=== PATIENT | male | born 1945 | race Caucasian/White ===

== ENCOUNTER 2017-04-29 01:58 | Inpatient (IN) | payer OTHER ==
[2017-04-29] VITALS (12 sets, daily range): BP systolic 105–120; BP diastolic 62–81; PULSE 61–82; RESP 18–20; TEMP 97–98.7; O2SAT 93–99
[~2017-04-29] VITALS: Ht 177.8 cm; Wt 78.8 kg
[2017-04-29] MEDS ORDERED: IBUP1TAB5 PO (02:28)
[2017-04-29 02:36] LABS: AUTOMATED NEUTROPHIL # 9.9 TH/MM3 (1.8-7.7); BASOPHIL # 0.2 TH/MM3 (0-0.2); BASOPHIL % 2.2 % (0.0-2.0); EOSINOPHIL % 0.1 % (0.0-4.0); HEMATOCRIT 44.9 % (39.0-51.0); HEMOGLOBIN 14.9 GM/DL (13.0-17.0); LYMPH % 6.8 % (9.0-44.0); LYMPHOCYTE # 0.8 TH/MM3 (1.0-4.8); MEAN CELL VOLUME 98.2 FL (80.0-100.0); MEAN CORPUSCULAR HEMOGLOBIN 32.7 PG (27.0-34.0); MEAN CORPUSCULAR HGB CONC 33.3 % (32.0-36.0); MEAN PLATELET VOLUME 10.6 FL (7.0-11.0); MONOCYTE # 0.3 TH/MM3 (0-0.9); NEUT % 87.9 % (16.0-70.0); PLATELET COUNT 132 TH/MM3 (150-450); RED BLOOD COUNT 4.58 MIL/MM3 (4.50-5.90); RED CELL DISTRIBUTION WIDTH 11.9 % (11.6-17.2); WHITE BLOOD COUNT 11.2 TH/MM3 (4.0-11.0)
[2017-04-29 02:44] LABS: CHLORIDE 100 MEQ/L (98-107); SODIUM (NA) 135 MEQ/L (136-145)
[2017-04-29 02:48] LABS: ALBUMIN 4.1 GM/DL (3.4-5.0); BICARBONATE 27.3 MEQ/L (21.0-32.0); BLOOD UREA NITROGEN 25 MG/DL (7-18); GLUCOSE,RANDOM 132 MG/DL (74-106)
[2017-04-29 02:50] LABS: ALT (GPT) 24 U/L (12-78)
[2017-04-29 02:51] LABS: AST (GOT) 31 U/L (15-37); GLOMERULAR FILTRATION RATE 59 ML/MIN (>89)
[2017-04-29 02:52] LABS: TOTAL BILIRUBIN ADULT 0.8 MG/DL (0.2-1.0); TOTAL PROTEIN 7.5 GM/DL (6.4-8.2)
[2017-04-29 02:53] LABS: ALKALINE PHOSPHATASE 75 U/L (45-117)
[2017-04-29] MEDS ORDERED: SODIUM CHLOR 0.9% 1000 ML INJ 1,000 ML IV SCH (03:53)
--- NOTE | 2017-04-29 03:59 | PD ---
HPI Chief Complaint: Abdominal Pain Time Seen by Provider: 03:53 Travel History International Travel<30 days: No Contact w/Intl Traveler<30days: No Traveled to known affect area: No History of Present Illness HPI The patient is a 71-year-old male that complains of abdominal pain/vomiting since 1 PM tonight. The abdominal pain is periumbilical and involves all 4 quadrants diffusely. He has never had surgery and still has his appendix and gallbladder. The pain is 8/10, constant and sharp. The patient states he used to be a heavy drinker and had a problem with pancreatitis. He states he has never had this type of problem before. He no longer is a heavy drinker. PFS Past Medical History Diminished Hearing: No Inguinal Hernia: Yes Tetanus Vaccination: Unknown Influenza Vaccination: Yes Past Surgical History Other Surgery: Yes (left inguinal hernia repair ) Social History Alcohol Use: Yes (2 beers daily) Tobacco Use: No Substance Use: No Allergies-Medications (Allergen,Severity, Reaction): Coded Allergies: No Known Allergies (Unverified , 04/29/17) Reported Meds & Prescriptions Reported Meds & Active Scripts Active Reported Ibuprofen 400 Mg Tab 400 Mg PO DAILY PRN Review of Systems Except as stated in HPI: all other systems reviewed are Neg Physical Exam Narrative GENERAL: The patient is alert, oriented 3 in moderate apparent distress with his abdominal discomfort. His vital signs are normal. SKIN: Focused skin assessment warm/dry. HEAD: Atraumatic. Normocephalic. EYES: Pupils equal and round. No scleral icterus. No injection or drainage. ENT: No nasal bleeding or discharge. Mucous membranes pink and moist. NECK: Trachea midline. No JVD. CARDIOVASCULAR: Regular rate and rhythm. No murmur appreciated. RESPIRATORY: No accessory muscle use. Clear to auscultation. Breath sounds equal bilaterally. GASTROINTESTINAL: Abdomen soft, with diffuse tenderness in the periumbilical area and bilateral lower quadrants, nondistended. Hepatic and splenic margins not palpable. No guarding or rebound is present. MUSCULOSKELETAL: No obvious deformities. No clubbing. No cyanosis. No edema. NEUROLOGICAL: Awake and alert. No obvious cranial nerve deficits. Motor grossly within normal limits. Normal speech. PSYCHIATRIC: Appropriate mood and affect; insight and judgment normal. Data Data Last Documented VS Vital Signs Date Time Temp Pulse Resp B/P (MAP) Pulse Ox O2 Delivery O2 Flow Rate FiO2 2/2/18 04:50 16 04/29/17 04:31 71 114/75 (88) 97 04/29/17 02:05 97.0 Orders Orders Complete Blood Count With Diff (04/29/17 02:22) Comprehensive Metabolic Panel (04/29/17 02:22) Urinalysis - C+S If Indicated (04/29/17 02:22) Lipase (04/29/17 02:22) Ct Abd/Pel W Iv Contrast(Rout) (04/29/17 03:53) Hydromorphone Pf Inj (Dilaudid Pf Inj) (04/29/17 04:00) Ondansetron Inj (Zofran Inj) (04/29/17 04:00) Sodium Chlor 0.9% 1000 Ml Inj (Ns 1000 M (04/29/17 03:53) Iohexol 350 Inj (Omnipaque 350 Inj) (04/29/17 04:00) Place In Observation (04/29/17 ) Vital Signs (Adult) Q4H (04/29/17 05:15) Activity Oob With Assistance (04/29/17 05:15) Diet Npo (04/29/17 Breakfast) Sodium Chlor 0.9% 1000 Ml Inj (Ns 1000 M (04/29/17 05:15) Sodium Chloride 0.9% Flush (Ns Flush) (04/29/17 05:15) Sodium Chloride 0.9% Flush (Ns Flush) (04/29/17 09:00) Ondansetron Inj (Zofran Inj) (04/29/17 05:15) Comprehensive Metabolic Panel (04/30/17 06:00) Complete Blood Count With Diff (04/30/17 06:00) Naloxone Inj (Narcan Inj) (04/29/17 05:15) Docusate Sodium-Senna (Janet-Colace) (04/29/17 09:00) Magnesium Hydroxide Liq (Milk Of Magnesi (04/29/17 05:15) Sennosides (Senokot) (04/29/17 05:15) Bisacodyl Supp (Dulcolax Supp) (04/29/17 05:15) Lactulose Liq (Lactulose Liq) (04/29/17 05:15) Consult General Surgery (04/29/17 ) Hydromorphone Pf Inj (Dilaudid Pf Inj) (04/29/17 05:15) (Hub Use Only)Inp Phy Cons/Ref (04/29/17 ) Admit Order (Ed Use Only) (04/29/17 05:41) Labs Laboratory Tests Test 04/29/17 02:30 04/29/17 04:20 White Blood Count 11.2 TH/MM3 Red Blood Count 4.58 MIL/MM3 Hemoglobin 14.9 GM/DL Hematocrit 44.9 % Mean Corpuscular Volume 98.2 FL Mean Corpuscular Hemoglobin 32.7 PG Mean Corpuscular Hemoglobin Concent 33.3 % Red Cell Distribution Width 11.9 % Platelet Count 132 TH/MM3 Mean Platelet Volume 10.6 FL Neutrophils (%) (Auto) 87.9 % Lymphocytes (%) (Auto) 6.8 % Monocytes (%) (Auto) 3.0 % Eosinophils (%) (Auto) 0.1 % Basophils (%) (Auto) 2.2 % Neutrophils # (Auto) 9.9 TH/MM3 Lymphocytes # (Auto) 0.8 TH/MM3 Monocytes # (Auto) 0.3 TH/MM3 Eosinophils # (Auto) 0.0 TH/MM3 Basophils # (Auto) 0.2 TH/MM3 CBC Comment DIFF FINAL Differential Comment Blood Urea Nitrogen 25 MG/DL Creatinine 1.20 MG/DL Random Glucose 132 MG/DL Total Protein 7.5 GM/DL Albumin 4.1 GM/DL Calcium Level 10.0 MG/DL Alkaline Phosphatase 75 U/L Aspartate Amino Transf (AST/SGOT) 31 U/L Alanine Aminotransferase (ALT/SGPT) 24 U/L Total Bilirubin 0.8 MG/DL Sodium Level 135 MEQ/L Potassium Level 4.5 MEQ/L Chloride Level 100 MEQ/L Carbon Dioxide Level 27.3 MEQ/L Anion Gap 8 MEQ/L Estimat Glomerular Filtration Rate 59 ML/MIN Lipase 171 U/L Urine Color YELLOW Urine Turbidity CLEAR Urine pH 6.5 Urine Specific [place] 1.025 Urine Protein TRACE mg/dL Urine Glucose (UA) NEG mg/dL Urine Ketones 15 mg/dL Urine Occult Blood SMALL Urine Nitrite NEG Urine Bilirubin NEG Urine Leukocyte Esterase NEG Urine RBC 0-3 /hpf Urine WBC 0-2 /hpf Urine Squamous Epithelial Cells 0-5 /hpf Urine Bacteria NONE /hpf Microscopic Urinalysis Comment CULT NOT INDICATED MDM Medical Decision Making Medical Screen Exam Complete: Yes Emergency Medical Condition: Yes Medical Record Reviewed: Yes Interpretation(s) The CBC shows a white count 11,200 with 88% neutrophils but is otherwise unremarkable. The complete metabolic profile shows a sodium of 135, GFR of 59 BUN 25, glucose 132 but is otherwise normal. The lipase is normal. The CT abdomen pelvis shows a small obstruction with transition point in the right lower quadrant. Incidentally noted are hepatic cyst and renal cysts and nonobstructing left lower pole renal calculus. The urine shows 15 ketones, small occult blood but is otherwise normal and culture is not indicated. Differential Diagnosis Small bowel obstruction, appendicitis, colitis, urinary tract infection, dehydration, electrolyte disorder, pancreatitis Narrative Course The patient has a small bowel obstruction. The patient has no previous surgeries on the abdomen and this is somewhat unusual that he has a small bowel obstruction without any apparent intra-abdominal scarring. The patient will be admitted to the [facility] service for fluids, nothing by mouth. If this does not cause resolution of the obstruction then surgery needs to be consulted. Patient has not vomited in emergency department and is fairly comfortable. The NG tube will be deferred at this time. The patient also has mild dehydration. Diagnosis Primary Impression: Small bowel obstruction Additional Impression: Mild dehydration Admitting Information Admitting Physician Requests: Minh Medina MD Apr 29, 2017 03:59
[2017-04-29] MEDS ORDERED: ONDANSETRON HCL 4 MG/2 ML VIAL IVP ONE (04:00)
[2017-04-29] MEDS ORDERED: HYDROmorphone HCL PF 2 MG/ML VIAL IVS ONE (04:00)
[2017-04-29] MEDS ORDERED: IOHEXOL 350 MG/ML 10 ML VIAL (for RAD DIAG) IVCONTRAST ONE (04:00)
[2017-04-29 04:31] LABS: BILIRUBIN, URINE NEG (NEG); BLOOD, URINE SMALL (NEG); GLUCOSE,URINE NEG (NEG); KETONE, URINE 15 mg/dL (NEG); NITRITE,URINE NEG (NEG); PH, URINE 6.5 (5.0-8.5); URINE LEUKOCYTE ESTERASE NEG (NEG)
--- NOTE | 2017-04-29 04:36 | RADRPT ---
EXAM DATE/TIME: 04/29/2017 04:08 [facility] COMPARISON: No previous studies available for comparison. INDICATIONS : Generalized abdominal pain and vomiting for 12 hours IV CONTRAST: 96 cc Omnipaque 350 (iohexol) IV ORAL CONTRAST: No oral contrast ingested. RADIATION DOSE: 8.49 CTDIvol (mGy) MEDICAL HISTORY : None SURGICAL HISTORY : Inguinal hernia repair. ENCOUNTER: Initial ACUITY: 1 day PAIN SCALE: 8/10 LOCATION: [facility]inal TECHNIQUE: Volumetric scanning of the abdomen and pelvis was performed. Using automated exposure control and ad justment of the mA and/or kV according to patient size, radiation dose was kept as low as reasonably achievable to obtain optimal diagnostic quality images. DICOM format image data is available electro nically for review and comparison. FINDINGS: Lung bases are clear. There are degenerative changes of the spine noted. There is a small pericardial effusion or numerous cysts are present throughout the hepatic parenchyma the largest in the left lob e measuring up to 2.3 cm. Spleen, pancreas, adrenals are unremarkable. There is a nonobstructing left lower pole 4.4 mm calculus, and a 5 mm cyst at the lower pole of left kidney. At the midpole of the right kidney a 2.6 cm cyst is noted, and at the upper pole of the right kidney an exophytic 5.8 cm si mple cyst is present. Urinary bladder and prostate are unremarkable. There is trace free fluid in the pelvis. Appendix normal. There are dilated fluid-filled loops of small bowel present in the stomach is distended with fluid. This is characteristic of a small bowel obstruction. Distal ileal loops are markedly decompressed. There is trace mesenteric fluid/edema in the right lower quadrant. A transitio n point is suspected on axial image 41 in the right lower quadrant. Small fat-containing umbilical he rnia. CONCLUSION: 1. Small bowel obstruction with transition point in the right lower quadrant. 2. Hepatic cysts and re nal cysts are noted. 3. Nonobstructing left lower pole renal calculus. Demarco Bee MD on April 29, 2017 at 4:30 Board Certified Radiologist. This report was verified electronically.
[2017-04-29 04:38] LABS: RBC, URINE 0-3 /hpf (0-3); SQUAMOUS EPITHELIAL CELL URINE 0-5 /hpf (0-5); URINE COLOR YELLOW (YELLW/STRAW); WBC, URINE 0-2 /hpf (0-5)
[2017-04-29] MEDS ORDERED: MAGNESIUM HYDROXIDE SUSP 30 ML CUP PO PRN (05:15)
[2017-04-29] MEDS ORDERED: HYDROmorphone HCL PF 2 MG/ML VIAL IV PUSH PRN (05:15)
[2017-04-29] MEDS ORDERED: ONDANSETRON HCL 4 MG/2 ML VIAL IVP PRN (05:15)
[2017-04-29] MEDS ORDERED: LACTULOSE SYRUP 20 GM/30 ML CUP PO PRN (05:15)
[2017-04-29] MEDS ORDERED: SENNOSIDES 8.6 MG TAB PO PRN (05:15)
[2017-04-29] MEDS ORDERED: NALOXONE HCL 0.4 MG/ML AMP IV PUSH PRN (05:15)
[2017-04-29] MEDS ORDERED: BISACODYL 10 MG SUPP RECTAL PRN (05:15)
[2017-04-29] MEDS ORDERED: SODIUM CHLORIDE 0.9% FLUSH 10 ML FLUSH IV FLUSH PRN (05:15)
[2017-04-29] MEDS: SODIUM CHLOR 0.9% 1000 ML INJ 1,000 ML IV SCH ×2 (06:40→16:44)
[2017-04-29] MEDS ORDERED: DOCUSATE SODIUM 50 MG/SENNA 8.6 MG TAB PO SCH (09:00)
[2017-04-29] MEDS: SODIUM CHLORIDE 0.9% FLUSH 10 ML FLUSH IV FLUSH SCH ×2 (09:00→21:27)
--- NOTE | 2017-04-29 13:21 | HHI.HP ---
[facility] Service [facility] Primary Care Physician [facility] Admission Diagnosis small bowel obstruction, dehydration Diagnoses: Travel History International Travel<30 Days: No Contact w/Intl Traveler <30 Da: No Traveled to Known Affected Are: No History of Present Illness This patient is a 71-year-old gentleman with minimal past medical history comes in with acute onset of abdominal pain with associated vomiting. The pain is described as 8 out of 10, constant and sharp and worse in the left side. It is improved with IV Dilaudid. The pain goes from 8-6. He used to be a heavy drinker but now drinks only 2 beers a day. He is active and exercises daily. In the past he has had problems with pancreatitis and was prescribed pancreas enzymes however had stopped taking them. He now takes ibuprofen as needed for pain. Patient has not had a fever or chills. He is mildly elevated white cell count and some mild hyponatremia. The patient's recommend for admission due to obstruction which is seen clinically and on CT of abdomen pelvis Review of Systems Constitutional: DENIES: Diaphoretic episodes, Fatigue, Fever, Weight gain, Weight loss, Chills, Dizziness, Change in appetite, Night Sweats Endocrine: DENIES: Heat/cold intolerance, Polydipsia, Polyuria, Polyphagia Eyes: DENIES: Blurred vision, Diplopia, Eye inflammation, Eye pain, Vision loss , Photosensitivity, Double Vision Ears, nose, mouth, throat: DENIES: Tinnitus, Hearing loss, Vertigo, Nasal discharge, Oral lesions, Throat pain, Hoarseness, Ear Pain, Running Nose, Epistaxis, Sinus Pain, Toothache, Odynophagia Respiratory: DENIES: Apneas, Cough, Snoring, Wheezing, Hemoptysis, Sputum production, Shortness of breath Cardiovascular: DENIES: Chest pain, Palpitations, Syncope, Dyspnea on Exertion , PND, Lower Extremity Edema, Orthopnea, Claudication Gastrointestinal: COMPLAINS OF: Abdominal pain, Nausea Genitourinary: DENIES: Sexual dysfunction, Urinary frequency, Urinary incontinence, Urgency, Hematuria, Dysuria, Nocturia, Penile Discharge, Testicular Pain, Testicular Swelling Integumentary: DENIES: Abnormal pigmentation, Nail changes, Pruritus, Rash Hematologic/lymphatic: DENIES: Bruising, Lymphadenopathy Immunologic/allergic: DENIES: Eczema, Urticaria Neurologic: DENIES: Abnormal gait, Headache, Localized weakness, Paresthesias, Seizures, Speech Problems, Tremor, Poor Balance Psychiatric: DENIES: Anxiety, Confusion, Mood changes, Depression, Hallucinations, Agitation, Suicidal Ideation, Homicidal Ideation, Delusions Except as stated in HPI: all other systems reviewed are Neg Past Family Social History Past Medical History History of pancreatic insufficiency Past Surgical History Left inguinal hernia repair Reported Medications Reviewed in the EMR Allergies: Coded Allergies: No Known Allergies (Unverified , 04/29/17) Active Ordered Medications Reviewed in the EMR Family History Mother from cancer at 65 father from old age and a 4 Social History No current tobacco, alcohol daily but previous history of excessive alcohol dependency and pancreatic insufficiency Physical Exam Vital Signs Vital Signs Date Time Temp Pulse Resp B/P (MAP) Pulse Ox O2 Delivery O2 Flow Rate FiO2 04/29/17 08:26 95 21 04/29/17 08:12 96 Nasal Cannula 2.00 04/29/17 08:00 97.9 61 18 116/72 (87) 95 04/29/17 06:24 97.0 70 20 114/81 (92) 94 04/29/17 05:54 68 20 105/69 (81) 98 04/29/17 04:50 16 04/29/17 04:31 71 20 114/75 (88) 97 04/29/17 04:23 64 18 114/75 (88) 97 Room Air 04/29/17 03:09 71 18 120/71 (87) 97 04/29/17 02:30 20 04/29/17 02:05 97.0 66 20 105/62 (76) 99 Physical Exam GENERAL: This is a well-nourished, well-developed patient, complaining of abdominal pain SKIN: No rashes, ecchymoses or lesions. Cool and dry. HEAD: Atraumatic. Normocephalic. No temporal or scalp tenderness. EYES: Pupils equal round and reactive. Extraocular motions intact. No scleral icterus. No injection or drainage. ENT: Nose without bleeding, purulent drainage or septal hematoma. Throat without erythema, tonsillar hypertrophy or exudate. Uvula midline. Airway patent. NECK: Trachea midline. No JVD or lymphadenopathy. Supple, nontender, no meningeal signs. CARDIOVASCULAR: Regular rate and rhythm without murmurs, gallops, or rubs. RESPIRATORY: Clear to auscultation. Breath sounds equal bilaterally. No wheezes , rales, or rhonchi. GASTROINTESTINAL: Abdomen is soft, mildly distended, tender diffusely with hypoactive bowel sounds MUSCULOSKELETAL: Extremities without clubbing, cyanosis, or edema. No joint tenderness, effusion, or edema noted. No calf tenderness. Negative Homans sign bilaterally. NEUROLOGICAL: Awake and alert. Cranial nerves II through XII intact. Motor and sensory grossly within normal limits. Five out of 5 muscle strength in all muscle groups. Normal speech. Laboratory Laboratory Tests Test 04/29/17 02:30 04/29/17 04:20 White Blood Count 11.2 Red Blood Count 4.58 Hemoglobin 14.9 Hematocrit 44.9 Mean Corpuscular Volume 98.2 Mean Corpuscular Hemoglobin 32.7 Mean Corpuscular Hemoglobin Concent 33.3 Red Cell Distribution Width 11.9 Platelet Count 132 Mean Platelet Volume 10.6 Neutrophils (%) (Auto) 87.9 Lymphocytes (%) (Auto) 6.8 Monocytes (%) (Auto) 3.0 Eosinophils (%) (Auto) 0.1 Basophils (%) (Auto) 2.2 Neutrophils # (Auto) 9.9 Lymphocytes # (Auto) 0.8 Monocytes # (Auto) 0.3 Eosinophils # (Auto) 0.0 Basophils # (Auto) 0.2 CBC Comment DIFF FINAL Differential Comment Blood Urea Nitrogen 25 Creatinine 1.20 Random Glucose 132 Total Protein 7.5 Albumin 4.1 Calcium Level 10.0 Alkaline Phosphatase 75 Aspartate Amino Transf (AST/SGOT) 31 Alanine Aminotransferase (ALT/SGPT) 24 Total Bilirubin 0.8 Sodium Level 135 Potassium Level 4.5 Chloride Level 100 Carbon Dioxide Level 27.3 Anion Gap 8 Estimat Glomerular Filtration Rate 59 Lipase 171 Urine Color YELLOW Urine Turbidity CLEAR Urine pH 6.5 Urine Specific [place] 1.025 Urine Protein TRACE Urine Glucose (UA) NEG Urine Ketones 15 Urine Occult Blood SMALL Urine Nitrite NEG Urine Bilirubin NEG Urine Leukocyte Esterase NEG Urine RBC 0-3 Urine WBC 0-2 Urine Squamous Epithelial Cells 0-5 Urine Bacteria NONE Microscopic Urinalysis Comment CULT NOT INDICATED Result Diagram: 04/29/17 0230 04/29/17 0230 Imaging Last Impressions Abdomen/Pelvis CT 04/29/17 0353 Signed Impressions: Service Date/Time: Saturday, April 29, 2017 04:08 - CONCLUSION: 1. Small bowel obstruction with transition point in the right lower quadrant. 2. Hepatic cysts and renal cysts are noted. 3. Nonobstructing left lower pole renal calculus. MD Sae Alvarado VTE Risk Assessment Caprini VTE Risk Assessment: Mod/High Risk (score >= 2) Caprini Risk Assessment Model Point Value = 1 Point Value = 2 Point Value = 3 Point Value = 5 Age 41-60 Minor surgery BMI > 25 kg/m2 Swollen legs Varicose veins or History of unexplained or recurrent spontaneous Oral contraceptives or hormone replacement Sepsis (< 1 month) Serious lung disease, including pneumonia (< 1 month) Abnormal pulmonary function Acute myocardial infarction Congestive heart failure (< 1 month) History of inflammatory bowel disease Medical patient at bed rest Age 61-74 Arthroscopic surgery Major open surgery (> 45 min) Laparoscopic surgery (> 45 min) Malignancy Confined to bed (> 72 hours) Immobilizing plaster cast Central venous access Age >= 75 History of VTE Family history of VTE Factor V Leiden Prothrombin [id number] Lupus anticoagulant Anticardiolipin antibodies Elevated serum homocysteine Heparin-induced thrombocytopenia Other congenital or acquired thrombophilia Stroke (< 1 month) Elective arthroplasty Hip, pelvis, or leg fracture Acute spinal cord injury (< 1 month) Prophylaxis Regimen Total Risk Factor Score Risk Level Prophylaxis Regimen 0-1 Low Early ambulation 2 Moderate Order ONE of the following: *Sequential Compression Device (SCD) *Heparin 5000 units SQ BID 3-4 Higher Order ONE of the following medications: *Heparin 5000 units SQ TID *Enoxaparin/Lovenox 40 mg SQ daily (WT < 150 kg, CrCl > 30 mL/min) *Enoxaparin/Lovenox 30 mg SQ daily (WT < 150 kg, CrCl > 10-29 mL/min) *Enoxaparin/Lovenox 30 mg SQ BID (WT < 150 kg, CrCl > 30 mL/min) AND/OR *Sequential Compression Device (SCD) 5 or more Highest Order ONE of the following medications: *Heparin 5000 units SQ TID (Preferred with Epidurals) *Enoxaparin/Lovenox 40 mg SQ daily (WT < 150 kg, CrCl > 30 mL/min) *Enoxaparin/Lovenox 30 mg SQ daily (WT < 150 kg, CrCl > 10-29 mL/min) *Enoxaparin/Lovenox 30 mg SQ BID (WT < 150 kg, CrCl > 30 mL/min) AND *Sequential Compression Device (SCD) Assessment and Plan Problem List: (1) Small bowel obstruction ICD Code: K56.609 - Unspecified intestinal obstruction, unspecified as to partial versus complete obstruction Status: Acute Plan: we will continue with IV hydration, nothing by mouth status, encourage ambulation and continue with IV dilaudid for pain follow up flat and upright abdomen encourage ambulation Physician Certification 2 Midnight Certification Type: Admission for Inpatient Services Order for Inpatient Services The services are ordered in accordance with Medicare regulations or non- Medicare payer requirements, as applicable. In the case of services not specified as inpatient-only, they are appropriately provided as inpatient services in accordance with the 2-midnight benchmark. Estimated LOS (days): 3 3 days is the estimated time the patient will need to remain in the hospital, assuming treatment plan goals are met and no additional complications. Post-Hospital Plan: Home Ivet Ornelas MD Apr 29, 2017 13:21
[2017-04-30] VITALS: BP 113/65; PULSE 71; RESP 20; TEMP 97.4; O2SAT 95
[2017-04-30] MEDS: SODIUM CHLOR 0.9% 1000 ML INJ 1,000 ML IV SCH ×2 (01:45→11:15)
[2017-04-30 07:34] LABS: AUTOMATED NEUTROPHIL # 4.4 TH/MM3 (1.8-7.7); BASOPHIL % 0.4 % (0.0-2.0); EOSINOPHIL # 0.2 TH/MM3 (0-0.4); HEMATOCRIT 35.2 % (39.0-51.0); LYMPH % 19.3 % (9.0-44.0); LYMPHOCYTE # 1.2 TH/MM3 (1.0-4.8); MEAN CELL VOLUME 98.8 FL (80.0-100.0); MEAN CORPUSCULAR HEMOGLOBIN 35.1 PG (27.0-34.0); MEAN CORPUSCULAR HGB CONC 35.5 % (32.0-36.0); MEAN PLATELET VOLUME 11.4 FL (7.0-11.0); MONO % 7.7 % (0.0-8.0); MONOCYTE # 0.5 TH/MM3 (0-0.9); NEUT % 69.6 % (16.0-70.0); PLATELET COUNT 91 TH/MM3 (150-450); RED BLOOD COUNT 3.56 MIL/MM3 (4.50-5.90); RED CELL DISTRIBUTION WIDTH 12.4 % (11.6-17.2); WHITE BLOOD COUNT 6.3 TH/MM3 (4.0-11.0)
[2017-04-30 08:00] VITALS: BP 110/69; PULSE 52; RESP 15; TEMP 97.8; O2SAT 95
[2017-04-30 08:00] LABS: HEMOGLOBIN 12.5 GM/DL (13.0-17.0)
--- NOTE | 2017-04-30 08:07 | MB ---
cc: ELISE SYLVESTER M.D. DATE OF CONSULTATION: 04/29/2017 REASON FOR CONSULTATION: Small bowel obstruction seen on CT scan. HISTORY This a 71-year-old gentleman who does not really have any previous medical history. He states the last two weeks he was not feeling well, he had some loose bowel movements and then he had some severe cramping in his abdomen. Were had to call [employer] to get him to the emergency room. He had a CT scan which showed a small bowel obstruction and he was admitted and surgery was consulted to evaluate for small-bowel obstruction. He says he has not had a bowel movement in a couple days and not passing gas. He says since being in the hospital his pain is much better. He is not having cramping pain that he was having when he came by [employer]. REVIEW OF SYSTEMS Review of systems he denies any respiratory, cardiac her previous GI problems. No problems or skin problems, No psychiatric derangements. PAST SURGICAL HISTORY He has had a left inguinal hernia repair. He has had routine colonoscopies without pathology. PE IN GENERAL: On physical exam he is alert, oriented, pleasant, talkative gentleman. NECK: Neck is supple. CHEST: Clear. No carotid bruits. HEART: The heart is regular rate. HEAD, EYES, EARS, NOSE, AND THROAT: Pupils equal round reactive. ABDOMEN: Soft. Mild distension and no rebound or guarding. He has bowel sounds throughout. EXTREMITIES: Strength is all extremities without clubbing, cyanosis or edema. NEUROLOGIC: He is alert and without focal deficits. SKIN: Exam shows some tattoos. LABORATORY DATA He is a white count of 11, H&H of 14, 44 and platelet count 132. Chemistry showed a little bit of dehydration with a BUN of 25, creatinine 1.2. Liver enzymes were all normal. His lipase 171. Urinalysis is essentially clear. IMAGING STUDIES CT scan done with No oral contrast, just IV shows what was thought to be maybe a small bowel obstruction. ASSESSMENT/PLAN 71-year-old gentleman who is fairly healthy. No surgical history of his abdomen, only the left inguinal hernia repair. At this time clinically he does not have a small bowel obstruction. I think he had this illness may be viral this been ongoing in this community over the last several weeks. He is better with some hydration. At this time he would like to try some p.o. intake. We will check some electrolytes and a KUB in the morning but I anticipate him to recover without any surgical intervention required. MD ALBERTO Ferguson/rios /8:32 PM /7:44 AM
[2017-04-30 08:13] LABS: ALKALINE PHOSPHATASE 54 U/L (45-117); ALT (GPT) 15 U/L (12-78); AST (GOT) 19 U/L (15-37); BICARBONATE 27.6 MEQ/L (21.0-32.0); BLOOD UREA NITROGEN 16 MG/DL (7-18); CALCIUM 7.9 MG/DL (8.5-10.1); CHLORIDE 108 MEQ/L (98-107); GLOMERULAR FILTRATION RATE 66 ML/MIN (>89); GLUCOSE,RANDOM 78 MG/DL (74-106); MAGNESIUM 1.8 MG/DL (1.5-2.5); SODIUM (NA) 139 MEQ/L (136-145); TOTAL BILIRUBIN ADULT 0.9 MG/DL (0.2-1.0); TOTAL PROTEIN 5.7 GM/DL (6.4-8.2)
[2017-04-30] MEDS: SODIUM CHLORIDE 0.9% FLUSH 10 ML FLUSH IV FLUSH SCH (08:54)
--- NOTE | 2017-04-30 09:31 | RADRPT ---
EXAM DATE/TIME: 04/30/2017 09:14 [facility] COMPARISON: CT ABDOMEN & PELVIS W CONTRAST, April 29, 2017, 4:08. INDICATIONS : Small bowel obstruction MEDICAL HISTORY : None. SURGICAL HISTORY : None. ENCOUNTER: Subsequent ACUITY: 3 days PAIN SCORE: 0/10 LOCATION: Bilateral abdomen FINDINGS: Supine and upright views of the abdomen were performed. Air-filled small bowel loops with a few air-f luid levels. No abnormal masses, calcifications, or organomegaly is seen. The visualized lower lung s are clear. No evidence of free intraperitoneal gas. The osseous structures are unremarkable. CONCLUSION: 1. Air-filled small bowel loops with a few air-fluid levels. The overall appearance has improved from previous study. Fran Miller MD on April 30, 2017 at 9:27 Board Certified Radiologist. This report was verified electronically.
--- NOTE | 2017-04-30 10:03 | HHI.PR ---
cc: Elise Sylvester MD Subjective Subjective Notes DAILY PROGRESS NOTE FOR SURGICAL ATTENDING, DR. ELISE SYLVESTER i had a bm I feel much better I think im over my virus Objective Vitals/I&O Vital Signs Date Time Temp Pulse Resp B/P (MAP) Pulse Ox O2 Delivery O2 Flow Rate FiO2 04/30/17 00:00 97.4 71 20 113/65 (81) 95 04/29/17 08:26 21 04/29/17 08:12 Nasal Cannula 2.00 Labs Laboratory Tests Test 04/30/17 06:02 White Blood Count 6.3 Red Blood Count 3.56 Hemoglobin 12.5 Hematocrit 35.2 Mean Corpuscular Volume 98.8 Mean Corpuscular Hemoglobin 35.1 Mean Corpuscular Hemoglobin Concent 35.5 Red Cell Distribution Width 12.4 Platelet Count 91 Mean Platelet Volume 11.4 Neutrophils (%) (Auto) 69.6 Lymphocytes (%) (Auto) 19.3 Monocytes (%) (Auto) 7.7 Eosinophils (%) (Auto) 3.0 Basophils (%) (Auto) 0.4 Neutrophils # (Auto) 4.4 Lymphocytes # (Auto) 1.2 Monocytes # (Auto) 0.5 Eosinophils # (Auto) 0.2 Basophils # (Auto) 0.0 CBC Comment AUTO DIFF Differential Comment AUTO DIFF CONFIRMED Platelet Estimate LOW Platelet Morphology Comment NORMAL Blood Urea Nitrogen 16 Creatinine 1.10 Random Glucose 78 Total Protein 5.7 Albumin 3.0 Calcium Level 7.9 Magnesium Level 1.8 Alkaline Phosphatase 54 Aspartate Amino Transf (AST/SGOT) 19 Alanine Aminotransferase (ALT/SGPT) 15 Total Bilirubin 0.9 Sodium Level 139 Potassium Level 4.1 Chloride Level 108 Carbon Dioxide Level 27.6 Anion Gap 3 Estimat Glomerular Filtration Rate 66 Radiology Last Impressions Abdomen X-Ray 04/30/17 0600 Signed Impressions: Service Date/Time: Sunday, April 30, 2017 09:14 - CONCLUSION: 1. Air-filled small bowel loops with a few air-fluid levels. The overall appearance has improved from previous study. Fran Miller MD Abdomen/Pelvis CT 04/29/17 0353 Signed Impressions: Service Date/Time: Saturday, April 29, 2017 04:08 - CONCLUSION: 1. Small bowel obstruction with transition point in the right lower quadrant. 2. Hepatic cysts and renal cysts are noted. 3. Nonobstructing left lower pole renal calculus. Demarco Bee MD Cardiovascular: Regular Lungs: Clear Abdomen: Non-distended, Non-tender Extremities: Perfused A/P Problem List: (1) Small bowel obstruction ICD Codes: K56.609 - Unspecified intestinal obstruction, unspecified as to partial versus complete obstruction Status: Acute (2) Mild dehydration ICD Codes: E86.0 - Dehydration Status: Acute Assessment and Plan 71 year old with resolved ileus from virus ok to dc Attending Statement NOTE FOR SURGICAL ATTENDING, DR. ELISE SYLVESTER I attest that I had a [id number] encounter with the patient on the same day, and personally performed and documented my assessment and findings in the medical record. The following services were provided during this hospital visit: Chart data review, vital sign assessments/reviewing monitor data Review of consultations notes if present. Medication orders/review and/or management Ordering and/or reviewing lab tests Ordering and/or interpreting/reviewing x-rays and/or diagnostic studies Care of the patient and discussion of the patient with the care team Documentation time To help prompt me to consider important information that might be impacting today's encounter and assessment, information from prior notes written by myself or my colleagues may have been "brought forward/copy and pasted" into today's note. Elise Sylvester MD Apr 30, 2017 10:03
--- NOTE | 2017-04-30 10:06 | HHI.PR ---
Subjective Remarks Patient seen and evaluated today in follow-up for abdominal discomfort likely due to obstruction which appears to be resolving. Patient clinically Tory. Pain is improved. Awaiting return of bowel function Surgical consult appreciated Objective Vitals Vital Signs Date Time Temp Pulse Resp B/P (MAP) Pulse Ox O2 Delivery O2 Flow Rate FiO2 04/30/17 00:00 97.4 71 20 113/65 (81) 95 04/29/17 20:00 98.7 82 20 119/71 (87) 94 04/29/17 16:01 98.3 68 18 112/70 (84) 93 04/29/17 12:00 98.0 66 18 106/77 (87) 96 I/O 04/29/17 04/29/17 04/29/17 04/30/17 04/30/17 04/30/17 07:00 15:00 23:00 07:00 15:00 23:00 Intake Total 1000 ml 1000 ml 1307 ml Balance 1000 ml 1000 ml 1307 ml Intake Oral 240 ml IV Total 1000 ml 1000 ml 1067 ml # Voids 3 2 Result Diagram: 04/30/17 0602 04/30/17 0602 Imaging Last Impressions Abdomen X-Ray 04/30/17 0600 Signed Impressions: Service Date/Time: Sunday, April 30, 2017 09:14 - CONCLUSION: 1. Air-filled small bowel loops with a few air-fluid levels. The overall appearance has improved from previous study. Fran Miller MD Abdomen/Pelvis CT 04/29/17 0353 Signed Impressions: Service Date/Time: Saturday, April 29, 2017 04:08 - CONCLUSION: 1. Small bowel obstruction with transition point in the right lower quadrant. 2. Hepatic cysts and renal cysts are noted. 3. Nonobstructing left lower pole renal calculus. Demarco Bee MD Objective Remarks GENERAL: This is a well-nourished, well-developed patient, in no apparent distress. CARDIOVASCULAR: Regular rate and rhythm without murmurs, gallops, or rubs. RESPIRATORY: Clear to auscultation. Breath sounds equal bilaterally. No wheezes , rales, or rhonchi. GASTROINTESTINAL: Abdomen soft, non-tender, nondistended. Normal active bowel sounds MUSCULOSKELETAL: Extremities without clubbing, cyanosis, or edema. NEURO: Alert & Oriented x4 to person, place, time, situation. Moves all ext x4 A/P Problem List: (1) Small bowel obstruction ICD Code: K56.609 - Unspecified intestinal obstruction, unspecified as to partial versus complete obstruction Status: Acute Plan: we will continue with IV hydration, Improved pain on IV narcotics Diet has been progressed without difficulty Repeat abdominal film today is improved Discharge Planning Discharge home after return of bowel function Ivet Ornelas MD Apr 30, 2017 10:06
--- NOTE | 2017-04-30 11:29 | HHI.PR ---
cc: Elise Sylvester MD Subjective Subjective Notes DAILY PROGRESS NOTE FOR SURGICAL ATTENDING, DR. ELISE SYLVESTER Up ambulating had a bowel movement Objective Vitals/I&O Vital Signs Date Time Temp Pulse Resp B/P (MAP) Pulse Ox O2 Delivery O2 Flow Rate FiO2 04/30/17 00:00 97.4 71 20 113/65 (81) 95 04/29/17 08:26 21 04/29/17 08:12 Nasal Cannula 2.00 Labs Laboratory Tests Test 04/30/17 06:02 White Blood Count 6.3 Red Blood Count 3.56 Hemoglobin 12.5 Hematocrit 35.2 Mean Corpuscular Volume 98.8 Mean Corpuscular Hemoglobin 35.1 Mean Corpuscular Hemoglobin Concent 35.5 Red Cell Distribution Width 12.4 Platelet Count 91 Mean Platelet Volume 11.4 Neutrophils (%) (Auto) 69.6 Lymphocytes (%) (Auto) 19.3 Monocytes (%) (Auto) 7.7 Eosinophils (%) (Auto) 3.0 Basophils (%) (Auto) 0.4 Neutrophils # (Auto) 4.4 Lymphocytes # (Auto) 1.2 Monocytes # (Auto) 0.5 Eosinophils # (Auto) 0.2 Basophils # (Auto) 0.0 CBC Comment AUTO DIFF Differential Comment AUTO DIFF CONFIRMED Platelet Estimate LOW Platelet Morphology Comment NORMAL Blood Urea Nitrogen 16 Creatinine 1.10 Random Glucose 78 Total Protein 5.7 Albumin 3.0 Calcium Level 7.9 Magnesium Level 1.8 Alkaline Phosphatase 54 Aspartate Amino Transf (AST/SGOT) 19 Alanine Aminotransferase (ALT/SGPT) 15 Total Bilirubin 0.9 Sodium Level 139 Potassium Level 4.1 Chloride Level 108 Carbon Dioxide Level 27.6 Anion Gap 3 Estimat Glomerular Filtration Rate 66 Radiology Last Impressions Abdomen X-Ray 04/30/17 0600 Signed Impressions: Service Date/Time: Sunday, April 30, 2017 09:14 - CONCLUSION: 1. Air-filled small bowel loops with a few air-fluid levels. The overall appearance has improved from previous study. Fran Miller MD Abdomen/Pelvis CT 04/29/17 0353 Signed Impressions: Service Date/Time: Saturday, April 29, 2017 04:08 - CONCLUSION: 1. Small bowel obstruction with transition point in the right lower quadrant. 2. Hepatic cysts and renal cysts are noted. 3. Nonobstructing left lower pole renal calculus. Demarco Bee MD Cardiovascular: Regular Lungs: Clear Abdomen: Non-tender, Other Extremities: Perfused A/P Problem List: (1) Gastroenteritis ICD Codes: K52.9 - Noninfective gastroenteritis and colitis, unspecified Status: Acute (2) Small bowel obstruction ICD Codes: K56.609 - Unspecified intestinal obstruction, unspecified as to partial versus complete obstruction Status: Acute (3) Mild dehydration ICD Codes: E86.0 - Dehydration Status: Acute (4) Ileus ICD Codes: K56.7 - Ileus, unspecified Status: Acute Assessment and Plan 71-year-old gentleman who had a viral illness and is recovering from an ileus Ambulating well also today had a bowel movement tolerating diet he should be able to go home today Attending Statement NOTE FOR SURGICAL ATTENDING, DR. ELISE SYLVESTER I attest that I had a [id number] encounter with the patient on the same day, and personally performed and documented my assessment and findings in the medical record. The following services were provided during this hospital visit: Chart data review, vital sign assessments/reviewing monitor data Review of consultations notes if present. Medication orders/review and/or management Ordering and/or reviewing lab tests Ordering and/or interpreting/reviewing x-rays and/or diagnostic studies Care of the patient and discussion of the patient with the care team Documentation time To help prompt me to consider important information that might be impacting today's encounter and assessment, information from prior notes written by myself or my colleagues may have been "brought forward/copy and pasted" into today's note. Elise Sylvester MD Apr 30, 2017 11:28
--- NOTE | 2017-04-30 11:29 | HHI.DCPOC ---
Discharge Care Plan Diagnosis: (1) Mild dehydration (2) Small bowel obstruction Goals to Promote Your Health * To prevent worsening of your condition and complications * To maintain your health at the optimal level Directions to Meet Your Goals Take your medications as prescribed Follow your dietary instruction Follow activity as directed Keep your appointments as scheduled Take your immunizations and boosters as scheduled If your symptoms worsen call your PCP, if no PCP go to Urgent Care Center or Emergency Room Smoking is Dangerous to Your Health. Avoid second hand smoke Call the 24-hour hour crisis hotline for domestic abuse at Ivet Ornelas MD Apr 30, 2017 11:29
== END 2017-04-30 13:30 | disposition home or self-care (01) | DRG 389 ==
LOC: PHED 01:58 → PHEDA 05:43 → PH3A 06:24 → OBSVTOIN 09:59
PROVIDERS: ADMIT Hospitalist; ATTEND Hospitalist
DX: K56.7 Ileus, unspecified (principal); E87.1 Hypo-osmolality and hyponatremia; K86.89 Other specified diseases of pancreas; E86.0 Dehydration; K76.89 Other specified diseases of liver; N28.1 Cyst of kidney, acquired; N20.0 Calculus of kidney; K52.9 Noninfective gastroenteritis and colitis, unspecified; F10.20 Alcohol dependence, uncomplicated
CPT/HCPCS: 74019; 74177; 80053; 81001; 83690; 83735; 85025; 96361; 96374; 96375; G8987-GP; G8988-GP; J1170; J2405; J7030; Q9967